=== PATIENT | male | born 1990 | race Hispanic/Latino ===

== ENCOUNTER 2017-06-25 08:03 | Inpatient (IN) | payer SELFPAY ==
[2017-06-25 08:29] LABS: BASOPHILS % (AUTO) 0.4 % (0.0-5.0); EOSINOPHILS % (AUTO) 0.9 % (0.0-8.0); HEMATOCRIT 50.6 % (42-54); LYMPHOCYTES % (AUTO) 16.3 % (21.0-51.0); MEAN CORPUSCULAR HEMOGLOBIN 29.4 pg (27.0-33.0); MEAN CORPUSCULAR HGB CONC 34.3 g/dL (32.0-36.0); MEAN CORPUSCULAR VOLUME 85.7 fL (79-99); MONOCYTES % (AUTO) 7.6 % (3.0-13.0); NEUTROPHILS % (AUTO) 74.8 % (40.0-77.0); PLATELET COUNT (AUTO) 275 K/uL (130-400); RED CELL DISTRIBUTION WIDTH 13.7 % (11.0-15.5); WHITE BLOOD COUNT (AUTO) 15.2 K/uL (4.8-10.8)
[2017-06-25 08:43] LABS: CREATININE 1.5 mg/dL (0.5-1.5); POTASSIUM 3.4 mmol/L (3.5-5.1)
[2017-06-25 08:54] LABS: ALBUMIN 3.7 g/dL (3.5-5.0); BILIRUBIN,TOTAL 0.5 mg/dL (0.2-1.0); TOTAL PROTEIN, SERUM 8.5 g/dL (6.0-8.3)
[2017-06-25] MEDS ORDERED: CEFTRIAXONE SODIUM 1 GM ONE (08:54)
[2017-06-25] MEDS ORDERED: KETOROLAC TROMETHAMINE 30MG/ML ONE (08:54)
[2017-06-25] MEDS ORDERED: SODIUM CHLORIDE 0.9% 1000ML 2,000 ML IV ONE (08:54)
[2017-06-25 09:44] LABS: APPEARANCE,URINE Clear (CLEAR); BILIRUBIN,URINE Negative (NEGATIVE); COLOR,URINE Yellow (YELLOW); GLUCOSE, URINE (UA) Negative (NEGATIVE); KETONES,URINE Negative (NEGATIVE); LEUKOCYTE ESTERASE ,URINE Negative (NEGATIVE); NITRATE,URINE Negative (NEGATIVE); OCCULT BLOOD,URINE Nonhemolyzed Trace (NEGATIVE); PH,URINE 6.5 (5.0-8.0); PROTEIN,URINE Negative (NEGATIVE); UROBILINOGEN,URINE 0.2 mg/dL (0.2-1.0)
[2017-06-25 10:07] LABS: BACTERIA,URINE Rare /HPF (None Seen); SQUAMOUS EPITHELIAL CELL,UR Rare /LPF (0-2); WBC,URINE 0-1 /HPF (0-1)
[2017-06-25] MEDS ORDERED: LACTATED RINGERS 1000ML 1,000 ML IV SCH (13:10)
[2017-06-25] MEDS ORDERED: MORPHINE SULFATE 2 MG/ML 1ML SYG IM PRN (13:15)
[2017-06-25] MEDS ORDERED: ONDANSETRON HCL 4 MG/2 ML VIAL IV PRN (13:15)
[2017-06-25] MEDS ORDERED: KETOROLAC TROMETHAMINE 15MG/ML IM PRN (13:15)
[2017-06-25] MEDS ORDERED: LIDOCAINE HCL-MPF 1% 2ML VIAL IVP PRN (13:30)
[2017-06-25] MEDS ORDERED: POTASSIUM CHLORIDE 20MEQ/100ML 100 ML IV PRN (13:30)
[2017-06-25] MEDS ORDERED: POTASSIUM CHLORIDE 20 MEQ ERTAB PO PRN (13:30)
[2017-06-25] MEDS ORDERED: POTASSIUM CHLORIDE 10% ELIXIR 20 MEQ/15 ML UDCUP PO PRN (13:30)
[2017-06-25] MEDS ORDERED: FAMOTIDINE/PF 20 MG/2 ML VIAL IV SCH (21:00)
== END 2017-06-25 15:56 | disposition left against medical advice (07) | DRG 694 ==
LOC: EDH 08:03 → EDHIP 08:04 → 3BH 15:07 → EDHIP 15:56
PROVIDERS: ADMIT Family Medicine; ATTEND Family Medicine
DX: N20.1 Calculus of ureter (principal); D72.829 Elevated white blood cell count, unspecified; E66.9 Obesity, unspecified; Z87.442 Personal history of urinary calculi
CPT/HCPCS: 36415; 74176; 80053; 81001; 85025; J0696; J1885; J7030

== ENCOUNTER 2017-09-30 12:49 | Emergency (ER) | payer OTHER ==
[2017-09-30] MEDS ORDERED: LIDOCAINE HCL 2% 20ML ONE (13:11)
[2017-09-30] MEDS ORDERED: HYDROCODONE/ACETAMINOPHEN 5/325 MG TAB ONE (14:05)
== END 2017-09-30 14:23 | disposition home or self-care (01) ==
LOC: EDH 12:49
DX: L02.01 Cutaneous abscess of face (principal); K13.0 Diseases of lips
CPT/HCPCS: 10060; 99283; J3490

== ENCOUNTER 2017-10-13 08:42 | Emergency (ER) | payer OTHER ==
[2017-10-13] MEDS ORDERED: ACETAMINOPHEN 325 MG TAB ONE (08:58)
[2017-10-13] MEDS ORDERED: ONDANSETRON HCL 4 MG/2 ML VIAL ONE (08:58)
[2017-10-13] MEDS ORDERED: SODIUM CHLORIDE 0.9% 1000ML 1,000 ML IV ONE (08:58)
== END 2017-10-13 10:17 | disposition home or self-care (01) ==
LOC: EDH 08:42
DX: R11.2 Nausea with vomiting, unspecified (principal); R51 Headache; Z87.442 Personal history of urinary calculi
CPT/HCPCS: 96361; 96374; 99284; J2405; J7030

== ENCOUNTER 2017-11-03 04:00 | Emergency (ER) | payer OTHER | END 2017-11-03 04:26 | disposition home or self-care (01) | LOC: EDH 04:00 | DX: M79.672 Pain in left foot (principal); Z87.442 Personal history of urinary calculi | CPT/HCPCS: 99281 ==

== ENCOUNTER 2018-12-05 15:47 | Emergency (ER) | payer OTHER | END 2018-12-05 16:23 | disposition home or self-care (01) | LOC: EDH 15:47 | DX: L03.221 Cellulitis of neck (principal); Z87.442 Personal history of urinary calculi ==